=== PATIENT | male | born 1945 | race Caucasian/White ===

== ENCOUNTER 2016-11-05 10:39 | Day surgery (SDC) | payer BC ==
[2016-10-30 13:34] LABS: BASOPHIL % 0.4 % (0.0-0.4); Eosinophil % 1.7 % (0.00-5.0); Granulocytes % 56.7 % (36.0-66.0); Lymphocytes % 28.3 % (24.0-44.0); Mean Cell Volume 90.2 fl (78-100); Mean Corpuscular Hemoglobin 30.2 pg (26-32); Mean Platelet Volume 10.3 fl (6-9.5); Monocytes % 12.9 % (0.0-12.0); Platelet Count 228 K/mm3 (150-450); Red Blood Count 4.47 M/mm3 (4.1-5.6); Red Cell Distribution Width 14.6 % (11.5-14.0)
[2016-10-30 13:54] LABS: ALBUMIN 3.8 g/dL (3.4-5.0); ANION GAP 12.5 MEQ/L (5-15); BILIRUBIN,TOTAL 0.3 mg/dL (0.2-1.0); Carbon Dioxide 25.4 mEq/L (21-32); Potassium 4.1 mEq/L (3.5-5.1); Total Protein 7.6 gm/dL (6.4-8.2)
--- NOTE | 2016-11-02 16:30 | HP ---
PROCEDURE DATE: 11/05/16 HISTORY OF PRESENT ILLNESS: The patient is a 71 y/o who started a couple months ago with pain upper abdominal area, pain radiating back to his shoulder blades. No vomiting. Some nausea. No jaundice. No change in bowel movements. Worse with fatty foods. He apparently had a CT scan that showed some cholelithiasis, but he also had a HIDA ejection fraction of only 27%. PAST MEDICAL HISTORY: Has had hyperlipidemia, obesity, benign prostatic hypertrophy, history of hypertension, chronic lower back aches and pains as well as the diabetes. CURRENT MEDICATIONS: Bentyl, Dexilant, vitamin D3, Belsomra, daily multivitamins, leg cramp relief tabs, Coumadin, Lotrisone cream, verapamil, ranitidine, pravastatin, Enalapril, Tricor, Janumet, and glimepiride. PAST SURGICAL HISTORY: Excisional epidermal cyst in the past. Has had history of capsule endoscopy in the past. Had hemorrhoid surgery in the past as well as had history of some blood clots in the past. Had been on Coumadin. FAMILY HISTORY: Negative with regards to this problem. SOCIAL HISTORY: No smoking or alcohol abuse. REVIEW OF SYSTEMS: 10 systems reviewed. Again, he had a history of pulmonary embolism in the past, sounds like a pulmonary embolus or clots in the past, although he is a little vague on the details back in 2011 or 2012. Otherwise, no chest pains or palpitations currently. Otherwise, pertinent for the abdominal complaints as noted above and chronic medical problems. Other systems negative or noncontributory other than above or per preadmission questionnaire. PHYSICAL EXAMINATION: GENERAL: No acute distress. HEENT: Sclerae nonicteric. NECK: No JVD. CHEST: Equal excursion. Nonlabored breathing. CVS: Regular rate and rhythm. ABDOMEN: Soft. Some mild tenderness in upper abdomen. No peritoneal signs. EXTREMITIES: No significant edema. NEURO: Alert, moving extremities grossly symmetrically. IMPRESSION: 1. SYMPTOMATIC CHOLELITHIASIS, PROBABLE CHRONIC CHOLECYSTITIS WELL ABNORMAL EJECTION FRACTURE. FEEL HE WILL BENEFIT FROM LAPAROSCOPIC CHOLECYSTECTOMY, POSSIBLE OPEN. Risks and benefits explained in detail, but not limited to, bleeding; infection; small risk bowel, bladder, or blood vessel injury; small risk of trocar injury or hernia; small risk of bile leak, bile duct injury, or retained stone or sludge possibly requiring further procedures either open or endoscopic retrograde cholangiopancreatography; general risk of anesthesia, deep vein thrombosis, pulmonary embolism, or pneumonia; perioperative risks of aches, pains, bloating, constipation and/or loose stools possibly chronic in nature; general risks of anesthesia or sedation; possibility that this procedure may not improve his symptoms and he may need further work-up and/or testing, upper or lower endoscopy or other studies or procedures or other testing. He understands as well as the risk of proceeding with open procedure. Will proceed with laparoscopic cholecystectomy, possible open as an outpatient.
[~2016-11-05 10:39] MED LIST: BICITRA 30 ML CUP ONE; BLOXIVERZ IV ONE; CLINDAMYCIN-D5W 900 MG/50 ML*** 50 ML IV ONE; DIPRIVAN 200 MG/20 ML IV ONE; Decadron 4 MG INJ IV ONE; Ephedrine Sulfate 50 MG/ML IV ONE; Lactated Ringers 1,000 ML IV ONE; Lactated Ringers 1,000 ML IV SCH; Levofloxacin 500MG/100ML D5W 100 ML IV ONE; Levofloxacin 500MG/100ML D5W 100 ML IV SCH; Nimbex 20MG/10 Ml Vial (HIGH RISK MED) IV ONE; Pepcid 20 MG VIAL IV ONE; Quelicin Fliptop 200 MG/10 ML IV ONE; ROBINUL IV ONE; SUBLIMAZE 250 MCG/5 ML IV ONE; Sensorcaine 0.25% 10 ML ONE; TORAdol 30 mg Injection IV ONE; TRANDATE 20 MG/5 ML SYRINGE IV ONE; Transderm Scop 1.5MG Patch TOP PRN; Versed 2 MG/2 ML Injection IV ONE; Zemuron 100 MG/10 ML IV ONE; Zofran 4 MG/2 ML VIAL IV ONE
[2016-11-05] MEDS ORDERED: BICITRA 30 ML CUP PO ONE (10:48)
[2016-11-05] MEDS ORDERED: SUBLIMAZE 100 MCG/2 ML ONE (15:32)
--- NOTE | 2016-11-05 15:36 | OP ---
SURGERY DATE/TIME: 11/05/2016 1337 PREOPERATIVE DIAGNOSIS: Symptomatic cholelithiasis, symptomatic biliary dyskinesia, probable chronic cholecystitis. POSTOPERATIVE DIAGNOSIS: Symptomatic cholelithiasis, symptomatic biliary dyskinesia, probable chronic cholecystitis. PROCEDURE: Laparoscopic cholecystectomy. SURGEON: Dr. Triston Rosen. GRASS CUTTER: Doreen Morales, Medical Student III. ANESTHESIA: General. ESTIMATED BLOOD LOSS: Minimal. INDICATIONS: As noted above. Risks and benefits explained in detail but not limited to and consent obtained. DESCRIPTION OF PROCEDURE AND FINDINGS: The patient was taken to the OR. General anesthesia was induced. Abdomen was prepped and draped in the usual sterile fashion. After official time out and no disagreement with planned procedure, a transverse incision was made in the mid epigastrium given his obesity. It was felt like his umbilical area was way far away from his epigastric and presumed where his gallbladder was. In mid epigastrium a transverse incision made. Fascia grasped and pulled upward. Required using a longer Veress needle that was carefully inserted and tested with saline. Pneumoperitoneum accomplished insufflating opening pressure of 0-15. An 11 mm bladeless port and camera were inserted without difficulty all the way to the hilt. Two - 5 mm right upper quadrant ports were placed as well as 10/11 mm epigastric port that was later changed to 12 mm port. Otherwise gallbladder was intrahepatic. There was some fatty infiltration in the liver not quite macronodular cirrhosis but mild early nodularity. Otherwise the gallbladder slowly grasped carefully. It had some mild chronic inflammatory reaction. It was dissected carried posterior, lateral to anterior fashion. It was a little bit intrahepatic and made dissection difficult but slowly and carefully dissecting down in infundibular junction the cystic artery kind of splayed in two different directions securing both the medial side of gallbladder and out across over to the lateral side. Each branch was isolated, clipped and divided. This opened up the angle. The cystic duct infundibular junction slowly and carefully well skeletonized until a critical view was obtained both anteriorly and posteriorly. Given the chronic inflammatory reaction it was felt that the [employer]'s large clip maintenance department technician for the 12 port was placed in the epigastrium clipped x2. Appeared to have good control of the cystic duct stump. However as the remainder of the gallbladder is packed it was felt to be better to use EndoG[employer] stapler. This was carefully fired directly adjacent to the cristofer on the cystic duct infundibular junction. The gallbladder is slowly and carefully dissected free clipping additional oozing side branches off the cystic duct artery directly on the gallbladder wall as necessary. Just prior to releasing from final attachments to the anterior edge of the liver the liver bed re-inspected. Clips noted to be in place in cystic duct cristofer and cystic duct clips were noted to be in place. Cystic artery clips are in place. No signs of any active bleeding. The gallbladder was released from final attachments to the anterior edge of the liver, placed in Pleatman sac, pulled up in the epigastrium where the fascia spread slightly. The gallbladder and Pleatman sac able to be pulled free and passed off. The port was replaced. Copious amount of irrigation lateral to the liver and subhepatic space irrigating until clear. At this point the 12 mm port in the epigastrium closed with puncture closure device under direct vision of the camera. The camera was then repositioned to the epigastric port. The 10/11 port at the umbilical area was closed under direct vision with the camera with puncture closure device and #1 Vicryl. At this point careful inspection. Good hemostasis noted. No signs of any active bleeding or bile leakage. Clips noted in place in cystic duct and cystic artery stumps. It was felt there was no benefit from drain placement at this point. Pneumoperitoneum decompressed. The wound was irrigated out. Skin incision closed with 4-0 Vicryl. Steri-Strips and sterile dressing applied. 0.25% Marcaine local injected along the skin incision fascial defect. The patient tolerated the procedure well. There were no immediate complications. Findings discussed with the family out in the waiting area.
[2016-11-05] MEDS ORDERED: MORPHINE SULFATE 10 MG/ML ONE (15:51)
[2016-11-05] MEDS ORDERED: Zofran 4 MG/2 ML VIAL ONE (15:57)
[2016-11-05] MEDS ORDERED: Lactated Ringers 1,000 ML IV ONE (16:08)
[2016-11-05 17:54] VITALS: O2SAT 94
[2016-11-05 17:56] VITALS: BP 135/60; PULSE 69
== END 2016-11-05 17:20 | disposition home or self-care (01) ==
LOC: SDC 10:39
PROVIDERS: ATTEND Surgery
PROC: 0FT44ZZ Resection of Gallbladder, Percutaneous Endoscopic Approach (ICD-10-PCS; principal; 2016-11-05)
DX: K80.10 Calculus of gallbladder with chronic cholecystitis without obstruction (principal); K82.8 Other specified diseases of gallbladder; E11.9 Type 2 diabetes mellitus without complications; E78.5 Hyperlipidemia, unspecified; N40.0 Benign prostatic hyperplasia without lower urinary tract symptoms; M54.5 Low back pain; G89.29 Other chronic pain; Z86.718 Personal history of other venous thrombosis and embolism; Z79.01 Long term (current) use of anticoagulants; Z79.899 Other long term (current) drug therapy
CPT/HCPCS: 00790; 36415; 80053; 82962; 85025; 88304; 99100; J0330; J1100; J1885; J1956; J2250; J2270; J2405; J2704; J2710; J3010